=== PATIENT | female | born 2000 | race Caucasian/White ===

== ENCOUNTER 2019-01-30 10:40 | Emergency (ER) | payer OTHER ==
[~2019-01-30] VITALS: Ht 165.1 cm; Wt 67.6 kg
[2019-01-30 10:45] VITALS: BP 136/79
--- NOTE | 2019-01-30 10:48 | NUR ---
18 Y/O FEMALE PRESENTED WITH C/C OF TONSIL PAIN X2 DAYS, PAIN 10/10, SHARP. PER PT "HURTS" WHEN SWALLOWS. PER PT SAME S/S RECURRED LAST MONTH AND AMOXACILLIN/IBUPROFEN WERE GIVEN. PT HAS NKA. NO MEDICAL HX. NO SX. NO MEDS ON REG BASIS. DENIES N/V/D. SIDE RAIL X1. MOTHER AT BEDSIDE.
--- NOTE | 2019-01-30 11:11 | NUR ---
STREP A SCREEN GIVEN TO LAB IN PERSON
--- NOTE | 2019-01-30 11:23 | NUR ---
Patient appears to be resting comfortably in bed. Mother at bedside.
[2019-01-30] MEDS ORDERED: DEXAMETHASONE 4 MG/ML VIAL PO ONE (11:40)
[2019-01-30] MEDS ORDERED: PENICILLIN G BENZATHINE L-A 1.2 MU/2 ML SYR IM ONE (11:45)
[2019-01-30 12:22] VITALS: BP 136/79
--- NOTE | 2019-01-30 12:23 | NUR ---
Patient discharged with v/s stable. Written and verbal after care instructions given and explained. Patient verbalized understanding. Ambulatory with steady gait. All questions addressed prior to discharge. Advised to follow up with PMD.
== END 2019-01-30 12:23 | disposition home or self-care (01) ==
LOC: MED 10:40
DX: J02.8 Acute pharyngitis due to other specified organisms (principal); B96.89 Other specified bacterial agents as the cause of diseases classified elsewhere
CPT/HCPCS: 87081; 96372; 99283; J0561; J1100

== ENCOUNTER 2019-07-16 11:42 | Emergency (ER) | payer OTHER ==
[~2019-07-16] VITALS: Ht 162.6 cm; Wt 68.5 kg
[2019-07-16 11:48] VITALS: BP 119/75
--- NOTE | 2019-07-16 11:51 | NUR ---
PT AMBULATED TO BED 11
--- NOTE | 2019-07-16 11:55 | NUR ---
19 Y/O F C/C TONSILS CHECK UP. PER PT HAS HAD TONSIL PROBLEMS FOR A SEVERAL DAYS. DENIES PAIN AND DYSPHAGIA. PT STATES BREATHING PROBLEMS WHEN SLEEPING AND DRY MOUTH. ON ASSESSMENT INFLAMED TONSILS PRESENT. PT NKA. NO HX. NO RX. NO N/V/D. SIDE RAIL X1.
[2019-07-16] MEDS ORDERED: DEXAMETHASONE 10 MG/ML VIAL IM ONE (12:20)
[2019-07-16 12:56] VITALS: BP 119/75
== END 2019-07-16 12:56 | disposition home or self-care (01) ==
LOC: MED 11:42
DX: J35.1 Hypertrophy of tonsils (principal); G47.33 Obstructive sleep apnea (adult) (pediatric)
CPT/HCPCS: 96372; 99283; J1100

== ENCOUNTER 2020-06-19 16:18 | Emergency (ER) | payer OTHER ==
[~2020-06-19] VITALS: Ht 162.6 cm; Wt 59.0 kg
[2020-06-19 16:38] VITALS: BP 106/72
--- NOTE | 2020-06-19 16:51 | NUR ---
PT AMB TO BED 12
--- NOTE | 2020-06-19 18:08 | NUR ---
20/F BIB SELF C/O VAGINAL BLEEDING, INTERMITENT ABDOMINAL CRAMPING X 2 DAYS. ABDOMEN SOFT. DENIES N/V/D; SKIN IS PINK/WARM/DRY; AAOX4 WITH EVEN AND STEADY GAIT; LUNGS CLEAR BL; HR EVEN AND REGULAR; PT DENIES ANY FEVER, CP, SOB, OR COUGH AT THIS TIME; PATIENT STATES PAIN OF 3/10 AT THIS TIME; VSS; PATIENT POSITIONED FOR COMFORT; HOB ELEVATED; BEDRAILS UP X1; BED DOWN. ER MD MADE AWARE OF PT STATUS.
[2020-06-19 18:10] LABS: BASOPHILS % (AUTO) 0.3 % (0.0-2.0); EOSINOPHILS % (AUTO) 0.3 % (0.0-4.0); HEMATOCRIT 39.3 % (36-48); LYMPHOCYTES # (AUTO) 1.5 K/uL (2.5-16.5); LYMPHOCYTES % (AUTO) 20.3 % (20.5-51.1); MEAN CORPUSCULAR HEMOGLOBIN 29 pg (27-31); MEAN CORPUSCULAR HGB CONC 33 g/dL (33-37); MEAN CORPUSCULAR VOLUME 86.2 fL (80-94); MONOCYTES # (AUTO) 0.5 K/uL (0.8-1.0); MONOCYTES % (AUTO) 6.8 % (1.7-9.3); NEUTROPHILS # (AUTO) 5.5 K/uL (1.8-7.7); NEUTROPHILS % (AUTO) 72.3 % (42.2-75.2); PLATELET COUNT (AUTO) 284 K/uL (140-450); RED BLOOD CELL COUNT(AUTO) 4.55 MIL/uL (4.20-5.40); RED CELL DISTRIBUTION WIDTH 13.7 % (11.6-13.7); WHITE BLOOD COUNT (AUTO) 7.6 K/uL (4.8-10.8)
[2020-06-19 18:19] LABS: ANION GAP 11.3 (8-16); CARBON DIOXIDE 27.3 mmol/L (21-32); CREATININE 0.9 mg/dL (0.6-1.3); POTASSIUM 3.6 mmol/L (3.5-5.1)
[2020-06-19 18:43] VITALS: BP 106/72
== END 2020-06-19 18:42 | disposition home or self-care (01) ==
LOC: MED 16:18
DX: N93.9 Abnormal uterine and vaginal bleeding, unspecified (principal)
CPT/HCPCS: 36415; 80048; 81002; 81025; 85025; 99284

== ENCOUNTER 2020-09-05 10:36 | Emergency (ER) | payer OTHER ==
[~2020-09-05] VITALS: Ht 165.1 cm; Wt 59.0 kg
[2020-09-05 10:44] VITALS: BP 113/72
--- NOTE | 2020-09-05 10:44 | NUR ---
PATIENT TO LOBBY
--- NOTE | 2020-09-05 12:06 | NUR ---
PATIENT AT CHAIR BEING EVALUATED
[2020-09-05] MEDS ORDERED: AMOX500C25 PO (12:09)
[2020-09-05] MEDS ORDERED: IBUP-1842 PO (12:09)
--- NOTE | 2020-09-05 12:20 | NUR ---
NO NURSING CARE RENDERED. PT DISCHARGED. RX GIVEN FOR AMOXCILLIN AND MOTRIN.
== END 2020-09-05 12:20 | disposition home or self-care (01) ==
LOC: MED 10:36
DX: H66.91 Otitis media, unspecified, right ear (principal); J02.9 Acute pharyngitis, unspecified; Z79.899 Other long term (current) drug therapy
CPT/HCPCS: 99283

== ENCOUNTER 2021-03-23 08:11 | Emergency (ER) | payer OTHER ==
[~2021-03-23] VITALS: Ht 162.6 cm; Wt 69.9 kg
[~2021-03-23 08:11] MED LIST: AMOX500C25 PO; IBUP-1842 PO
[2021-03-23 08:25] VITALS: BP 120/74
--- NOTE | 2021-03-23 08:30 | NUR ---
pt in er tent 2
--- NOTE | 2021-03-23 08:31 | NUR ---
C/O sore throat x 2 days pain 5/10.
[2021-03-23] MEDS ORDERED: IBUP-2213 PO (08:47)
[2021-03-23] MEDS ORDERED: PRED20TA5 PO (08:47)
[2021-03-23 09:44] VITALS: BP 114/70
== END 2021-03-23 09:44 | disposition home or self-care (01) ==
LOC: MED 08:11
DX: J02.9 Acute pharyngitis, unspecified (principal)
CPT/HCPCS: 99282; 99283

== ENCOUNTER 2021-06-28 13:18 | Emergency (ER) | payer OTHER ==
[~2021-06-28] VITALS: Ht 162.6 cm; Wt 71.7 kg
[~2021-06-28 13:18] MED LIST changes: -AMOX500C25 PO; -IBUP-1842 PO; +IBUP-2213 PO; +PRED20TA5 PO
[2021-06-28 13:24] VITALS: BP 138/73
[2021-06-28] MEDS ORDERED: DEXAMETHASONE 10 MG/ML VIAL IM ONE (14:35)
[2021-06-28] MEDS ORDERED: IBUPROFEN 600 MG TAB PO ONE (14:40)
[2021-06-28] MEDS ORDERED: IBUP-2213 PO (14:56)
[2021-06-28] MEDS ORDERED: AMOX-999 PO (14:56)
[2021-06-28] MEDS ORDERED: BENZ-300 PO (14:56)
== END 2021-06-28 15:14 | disposition home or self-care (01) ==
LOC: MED 13:18
DX: J02.9 Acute pharyngitis, unspecified (principal); R21 Rash and other nonspecific skin eruption; R03.0 Elevated blood-pressure reading, without diagnosis of hypertension; Z79.899 Other long term (current) drug therapy
CPT/HCPCS: 96372; 99283; J1100

== ENCOUNTER 2021-07-30 22:16 | Emergency (ER) | payer OTHER ==
[~2021-07-30] VITALS: Ht 162.6 cm; Wt 70.3 kg
[~2021-07-30 22:16] MED LIST changes: +AMOX-999 PO; +BENZ-300 PO
[2021-07-30 23:35] VITALS: BP 124/77
--- NOTE | 2021-07-31 00:03 | NUR ---
ERMD AT BEDSIDE ASSESSING PT.
[2021-07-31] MEDS ORDERED: methylPREDNISolone SS 125 MG in WATER STERILE 2 ML IV ONE ×4 (00:05)
[2021-07-31] MEDS ORDERED: AMPICILLIN/SULBACTAM 1.5 GM in NACL 0.9% 50 ML IV ONE (00:05)
[2021-07-31] MEDS ORDERED: WATER STERILE 10 ML MC ONE (00:22)
[2021-07-31] MEDS ORDERED: methylPREDNISolone SS 125 MG/2 ML VIAL ONE (00:22)
[2021-07-31] MEDS ORDERED: AMPICILLIN/SULBACTAM 1.5 GM VIAL ONE (00:23)
--- NOTE | 2021-07-31 02:07 | NUR ---
PT REPORTS SORE THROAT FEELING BETTER.
[2021-07-31] MEDS ORDERED: AMOX250P30 PO (02:14)
[2021-07-31 02:20] VITALS: BP 114/74
--- NOTE | 2021-07-31 02:20 | NUR ---
Note jody in EDM - 07/31/21 at 0227 by IVONNE Patient discharged with v/s stable. Written and verbal after care instructions given and explained. Patient alert, oriented and verbalized understanding of instructions. Ambulatory with steady gait. All questions addressed prior to discharge. ID band removed. Patient advised to follow up with PMD. Rx of AMOXICILLIN given. Patient educated on indication of medication including possible reaction and side effects. Opportunity to ask questions provided and answered.
--- NOTE | 2021-07-31 02:20 | NUR ---
Patient discharged with v/s stable. Written and verbal after care instructions given and explained. Patient alert, oriented and verbalized understanding of instructions. Ambulatory with steady gait. All questions addressed prior to discharge. ID band removed. Patient advised to follow up with PMD. Rx of AMOXICILLIN given. Patient educated on indication of medication including possible reaction and side effects. Opportunity to ask questions provided and answered. D/C COMPLETED BY TAYLOR MONTANO.
== END 2021-07-31 02:20 | disposition home or self-care (01) ==
LOC: MED 22:16
DX: J02.9 Acute pharyngitis, unspecified (principal); Z79.2 Long term (current) use of antibiotics; Z79.899 Other long term (current) drug therapy; Z79.1 Long term (current) use of non-steroidal anti-inflammatories (NSAID); Z98.890 Other specified postprocedural states
CPT/HCPCS: 36415; 87040; 96365; 96375; 99284; J0295; J2930

== ENCOUNTER 2022-10-29 18:33 | Emergency (ER) | payer OTHER ==
[~2022-10-29] VITALS: Ht 162.6 cm; Wt 81.6 kg
[~2022-10-29 18:33] MED LIST changes: +AMOX250P30 PO
[2022-10-29 18:50] VITALS: BP 129/71; PULSE 73; RESP 18; TEMP 97.3; O2SAT 100
[2022-10-29] MEDS ORDERED: LIDOCAINE MPF 1% 10 MG/ML VIAL INJ ONE (19:05)
[2022-10-29 19:30] VITALS: BP 129/71; PULSE 73; RESP 18; TEMP 97.3; O2SAT 100
[2022-10-29] MEDS ORDERED: BACI-418 TP (19:43)
[2022-10-29] MEDS ORDERED: IBUP-1842 PO (19:43)
[2022-10-29] MEDS ORDERED: IBUPROFEN 400 MG TAB PO ONE (19:45)
[2022-10-29] MEDS ORDERED: BACITRACIN OINT 500 UNITS/GM PKT TP ONE (19:45)
== END 2022-10-29 19:54 | disposition home or self-care (01) ==
LOC: MED 18:33
DX: S61.303A Unspecified open wound of left middle finger with damage to nail, initial encounter (principal); X58.XXXA Exposure to other specified factors, initial encounter; Y93.89 Activity, other specified; Y92.89 Other specified places as the place of occurrence of the external cause; Y99.8 Other external cause status
CPT/HCPCS: 11730; 99284; J2001